=== PATIENT | female | born 1950 | race Caucasian/White ===

== ENCOUNTER 2018-05-02 06:14 | Inpatient (IN) | payer OTHER ==
[2018-05-01] MEDS: DEXAMETHASONE 1 MG TAB PO (06:00)
[2018-05-01] MEDS: VANCOMYCIN 1 GM (PMX) 250 ML IVPB (06:52)
[2018-05-01] MEDS: TRANEXAMIC ACID 1,000 MG in DEXTROSE 5% 100 ML IVPB (07:05)
[2018-05-02] MEDS: VANCOMYCIN 1 GM 250 ML IVPB (06:30)
[2018-05-02] MEDS: DEXAMETHASONE 1 MG TAB PO (06:30)
[2018-05-02] MEDS: BUPIVACAINE 0.5%/EPI (SDV) 30 ML INJ (06:45)
[2018-05-02] MEDS ORDERED: TOBRAMYCIN 1.2 GM POWDER (06:45)
[2018-05-02] MEDS: POLYMYXIN/BACITRACIN 1L IRRIG (06:45)
[2018-05-02] MEDS: CA CHLORIDE 10% 10 ML SYRINGE (06:45)
[2018-05-02] MEDS: THROMBIN 5000 UNIT VIAL (06:45)
[2018-05-02] MEDS: TRANEXAMIC ACID 1,000 MG in DEXTROSE 5% 100 ML IVPB (07:05)
[2018-05-02] MEDS: BUPIVACAINE 0.5% (SDV) 30 ML, morphine SULFATE (PF) 8 MG, EPINEPHrine 0.3 MG, KETOROLAC... IRR (07:05)
[2018-05-02] MEDS ORDERED: ROPIVACAINE 0.5 % 30 ML VIAL (08:33)
[2018-05-02] MEDS ORDERED: MIDAZOLAM 1 MG/ML 2 ML INJ (08:33)
[2018-05-02] MEDS ORDERED: LIDOCAINE 2% (SDV) 5 ML INJ (08:46)
[2018-05-02] MEDS ORDERED: ONDANSETRON 4 MG INJ (08:46)
[2018-05-02] MEDS ORDERED: ROCURONIUM 50 MG INJ (08:46)
[2018-05-02] MEDS ORDERED: PROPOFOL 20 ML (08:46)
[2018-05-02] MEDS ORDERED: morphine 2 MG INJ IV ×2 (09:00)
[2018-05-02] MEDS ORDERED: ACETAMINOPHEN 500 MG TAB PO (09:00)
[2018-05-02] MEDS ORDERED: MAGNESIUM HYDROXIDE 30ML CUP PO (09:00)
[2018-05-02] MEDS ORDERED: VANCOMYCIN 500MG/NS (PMX) 100 ML IVPB (09:00)
[2018-05-02] MEDS ORDERED: ZOLPIDEM 5 MG TAB PO (09:00)
[2018-05-02] MEDS ORDERED: DIPHENHYDRAMINE 50 MG INJ IV ×2 (09:00→09:30)
[2018-05-02] MEDS ORDERED: ONDANSETRON 4 MG INJ IV ×2 (09:00→09:30)
[2018-05-02] MEDS ORDERED: LABETALOL HCL 20MG INJ IV (09:30)
[2018-05-02] MEDS ORDERED: hydrALAzine 20 MG INJ IV (09:30)
[2018-05-02] MEDS ORDERED: MEPERIDINE 25 MG INJ IV (09:30)
[2018-05-02] MEDS ORDERED: KETOROLAC 30 MG INJ (09:40)
[2018-05-02] MEDS ORDERED: FENTAnyl 50 MCG/ML VIAL (09:40)
[2018-05-02] MEDS: FENTAnyl 50 MCG/ML VIAL IV (09:44)
[2018-05-02] MEDS: TRANEXAMIC ACID 1,000 MG in DEXTROSE 5% 100 ML IV (10:11)
[2018-05-02] MEDS ORDERED: NALOXONE (0.4 MG/ML) INJ IV (11:30)
[2018-05-02] MEDS: DEXAMETHASONE 2 MG TAB PO ×2 (12:47→17:57)
[2018-05-02] MEDS: SENNA/DOCUSATE NA (8.6MG/50MG) TAB PO ×2 (12:47→20:56)
[2018-05-02] MEDS ORDERED: morphine LIQ (10 MG/5 ML) CUP PO ×2 (14:30)
[2018-05-02] MEDS: CLONIDINE 0.1 MG/24 HR PATCH TRANSDERM (15:06)
[2018-05-02] MEDS: VANCOMYCIN 500MG/NS (PMX) 100 ML IVPB (17:57)
[2018-05-02] MEDS: OXYCODONE/ACETAMINOPHEN (5/325) TAB PO (23:15)
[2018-05-03] MEDS: DEXAMETHASONE 2 MG TAB PO ×2 (00:11→06:37)
[2018-05-03] MEDS: KETOROLAC 15 MG INJ IV (00:12)
[2018-05-03] MEDS: OXYCODONE/ACETAMINOPHEN (5/325) TAB PO ×2 (06:37→15:59)
[2018-05-03] MEDS: VANCOMYCIN 500MG/NS (PMX) 100 ML IVPB (06:37)
[2018-05-03] MEDS: ASPIRIN 81 MG TAB PO (09:04)
[2018-05-03] MEDS: SENNA/DOCUSATE NA (8.6MG/50MG) TAB PO (09:04)
== END 2018-05-03 17:30 | disposition home or self-care (01) | DRG 483 ==
LOC: REC 06:14 → MS1 10:30
PROC: 0RRK0JZ Replacement of Left Shoulder Joint with Synthetic Substitute, Open Approach (ICD-10-PCS; principal; 2018-05-02 06:59)
PROC: 0LS40ZZ Reposition Left Upper Arm Tendon, Open Approach (ICD-10-PCS; 2018-05-02 06:59)
PROC: 0PBB0ZZ Excision of Left Clavicle, Open Approach (ICD-10-PCS; 2018-05-02 06:59)
DX: M19.012 Primary osteoarthritis, left shoulder (principal); S46.212A Strain of muscle, fascia and tendon of other parts of biceps, left arm, initial encounter; Z72.0 Tobacco use; M24.012 Loose body in left shoulder
CPT/HCPCS: 73030; 86999; 97165